=== PATIENT | male | born 1955 | race Caucasian/White ===

== ENCOUNTER 2020-11-01 18:24 | Inpatient (IN) | payer OTHER ==
[~2020-11-01] VITALS: Ht 182.9 cm; Wt 82.9 kg
[2020-11-01] MEDS ORDERED: AZITHROMYCIN 500MG/ 250ML 250 ML IV ONE (18:45)
[2020-11-01] MEDS ORDERED: ASCORBIC ACID 500 MG TAB PO ONE (18:45)
[2020-11-01] MEDS ORDERED: ZINC SULFATE 220mg CAP or TAB PO ONE (18:45)
[2020-11-01] MEDS ORDERED: methylPREDNISolone SOD SUCC 125 MG/2 ML VL IV ONE (18:45)
[2020-11-01] MEDS ORDERED: CHOLECALCIFEROL (VITD3) 2,000 UNIT CAP/TAB PO ONE (18:45)
[2020-11-01 19:46] LABS: Albumin 3.1 g/dL (3.4-5.0); Calcium 9.4 mg/dL (8.5-10.1); Potassium 3.9 mmol/L (3.5-5.1)
[2020-11-01 19:55] LABS: BUN/Creatinine Ratio 39.6; Bilirubin, Total 1.4 mg/dL (0.2-1.0); CRP High Sensitivity 10.9 mg/dL (< 0.3); Total Protein 7.1 g/dL (6.4-8.2)
[2020-11-01] MEDS ORDERED: ACETAMINOPHEN 500 MG TAB PO ONE (20:00)
[2020-11-01] MEDS ORDERED: cefTRIAXone 1GM/50ML D5W 50 ML IV ONE (21:00)
[2020-11-01] MEDS ORDERED: ONDANSETRON HCL 4 MG/2 ML VIAL IV PRN (21:00)
[2020-11-01] MEDS ORDERED: MORPHINE SULFATE INJECTION 2 MG/ML SYRG IV PRN (21:00)
[2020-11-01] MEDS ORDERED: NITROGLYCERIN 0.4 MG SL TAB SL PRN (21:00)
[2020-11-01] MEDS ORDERED: TEMAZEPAM 15 MG CAP PO PRN (21:00)
[2020-11-01] MEDS ORDERED: LORazepam 2MG/ML-1ML VIAL IV PRN (21:00)
[2020-11-01] MEDS ORDERED: DEXTROSE (50%) 50ML SYRG IV PRN (21:00)
[2020-11-01 21:50] VITALS: BP 120/73
[2020-11-01] MEDS: ATORVASTATIN 20 MG TAB PO SCH (22:00)
[2020-11-01] MEDS ORDERED: ATORVASTATIN 20 MG TAB PO SCH (22:00)
[2020-11-01 22:18] LABS: Basophils # (auto) 0 10 ^3/uL (0-0.2); Basophils % (auto) 0.1 % (0.0-2.0); Eosinophils # (auto) 0 10 ^3/uL (0-0.8); Hematocrit 38.1 % (41.0-53.0); Hemoglobin 12.3 g/dL (13.5-17.5); Lymphocytes # (auto) 0.5 10 ^3/uL (0.4-5.4); Lymphocytes % (auto) 7.1 % (10.0-50.0); Mean Corpuscular Hemoglobin 20.4 pg (28.0-32.0); Mean Corpuscular Hgb Conc. 32.3 g/dL (32.0-36.0); Monocytes # (auto) 0.3 10 ^3/uL (0-1.3); Neutrophils % (auto) 87.8 % (37.0-80.0); Nucleated Red Blood Cells % 0.1 %; Red Blood Cells 6.04 10^6/uL (4.5-5.90); Red Cell Distribution Width 15.5 % (11.8-14.3); White Blood Cell 6.8 10^3/uL (4.4-10.8)
[2020-11-01] MEDS: levETIRAcetam 500 MG TAB PO SCH (22:33)
[2020-11-01] MEDS: InsuLIN REG 1unit/0.01ml Soln (100units/ml) SC SCH (22:34)
[2020-11-01] MEDS: ACCU-CHEK COMFORT CURVE STRIP VI SCH (22:35)
[2020-11-01] MEDS: ENOXAPARIN SOD 40 MG/0.4 ML SYRINGE SC SCH (22:36)
[2020-11-02 05:54] LABS: Basophils # (auto) 0 10 ^3/uL (0-0.2); Basophils % (auto) 0.2 % (0.0-2.0); Eosinophils # (auto) 0 10 ^3/uL (0-0.8); Hematocrit 36.1 % (41.0-53.0); Lymphocytes # (auto) 0.5 10 ^3/uL (0.4-5.4); Monocytes # (auto) 0.2 10 ^3/uL (0-1.3)
[2020-11-02 05:58] LABS: Hemoglobin 12.1 g/dL (13.5-17.5); Lymphocytes % (auto) 9.8 % (10.0-50.0); Mean Corpuscular Hemoglobin 21.9 pg (28.0-32.0); Mean Corpuscular Hgb Conc. 33.5 g/dL (32.0-36.0); Mean Corpuscular Volume 65.5 fL (80.0-100.0); Neutrophils # (auto) 4.7 10 ^3/uL (1.6-8.6); Nucleated Red Blood Cells % 0.1 %; Red Blood Cells 5.52 10^6/uL (4.5-5.90); Red Cell Distribution Width 15.4 % (11.8-14.3); White Blood Cell 5.4 10^3/uL (4.4-10.8)
[2020-11-02 06:20] LABS: Potassium 4.1 mmol/L (3.5-5.1)
[2020-11-02 06:30] LABS: Albumin 2.8 g/dL (3.4-5.0); BUN/Creatinine Ratio 48.2; Bilirubin, Total 1.4 mg/dL (0.2-1.0); Calcium 9.2 mg/dL (8.5-10.1); Total Protein 6.9 g/dL (6.4-8.2)
[2020-11-02] MEDS: InsuLIN REG 1unit/0.01ml Soln (100units/ml) SC SCH ×4 (06:45→21:36)
[2020-11-02] MEDS: ACCU-CHEK COMFORT CURVE STRIP VI SCH ×4 (07:16→21:34)
[2020-11-02] MEDS: LISINOPRIL 5 MG TAB PO SCH (10:00)
[2020-11-02] MEDS: DexAMETHasone SOD PHOS 10MG/1ML VIAL INJ IV SCH (10:05)
[2020-11-02] MEDS: cefTRIAXone 1GM/50ML D5W 50 ML IV SCH (10:05)
[2020-11-02] MEDS: levETIRAcetam 500 MG TAB PO SCH ×2 (10:05→21:34)
[2020-11-02] MEDS: ZINC SULFATE 220mg CAP or TAB PO SCH (10:05)
[2020-11-02] MEDS: ASCORBIC ACID 1,000 MG TAB PO SCH (10:06)
[2020-11-02] MEDS: CHOLECALCIFEROL (VITD3) 2,000 UNIT CAP/TAB PO SCH (10:06)
[2020-11-02] MEDS: PANTOPRAZOLE 40 MG TAB PO SCH (10:06)
[2020-11-02] MEDS: ENOXAPARIN SOD 40 MG/0.4 ML SYRINGE SC SCH ×2 (10:07→21:34)
[2020-11-02] MEDS: AZITHROMYCIN 500MG/ 250ML 250 ML IV SCH (11:18)
[2020-11-02] MEDS ORDERED: REMDESIVIR PER PHARMACY 0 ML IV SCH (13:00)
[2020-11-02] MEDS ORDERED: REMDESIVIR 200 MG in NS 210ml LOADING DOSE ADULT IV ONE (14:00)
[2020-11-02] MEDS ORDERED: IOHEXOL 350 MG/ML 100ML IJ ONE (15:46)
[2020-11-02] MEDS: TAMSULOSIN HYDROCHLORIDE 0.4 MG CAP PO SCH (17:42)
[2020-11-02] MEDS: ATORVASTATIN 20 MG TAB PO SCH (21:34)
[2020-11-02 22:32] VITALS: BP 112/73
[2020-11-03 06:10] LABS: Albumin 2.6 g/dL (3.4-5.0); Calcium 9.4 mg/dL (8.5-10.1); Potassium 4.2 mmol/L (3.5-5.1)
[2020-11-03 06:15] LABS: BUN/Creatinine Ratio 43.9; Bilirubin, Total 0.8 mg/dL (0.2-1.0); Total Protein 6.7 g/dL (6.4-8.2)
[2020-11-03] MEDS: ACCU-CHEK COMFORT CURVE STRIP VI SCH ×4 (06:15→21:30)
[2020-11-03] MEDS: InsuLIN REG 1unit/0.01ml Soln (100units/ml) SC SCH ×4 (06:21→21:44)
[2020-11-03 06:26] VITALS: BP 118/74
[2020-11-03] MEDS ORDERED: IOHEXOL 350 MG/ML 100ML IJ ONE (07:44)
[2020-11-03] MEDS: cefTRIAXone 1GM/50ML D5W 50 ML IV SCH (08:52)
[2020-11-03 09:00] VITALS: BP 124/75
[2020-11-03] MEDS: CHOLECALCIFEROL (VITD3) 2,000 UNIT CAP/TAB PO SCH (09:48)
[2020-11-03] MEDS: ZINC SULFATE 220mg CAP or TAB PO SCH (09:48)
[2020-11-03] MEDS: DexAMETHasone SOD PHOS 10MG/1ML VIAL INJ IV SCH (09:48)
[2020-11-03] MEDS: PANTOPRAZOLE 40 MG TAB PO SCH (09:48)
[2020-11-03] MEDS: AZITHROMYCIN 500MG/ 250ML 250 ML IV SCH (09:48)
[2020-11-03] MEDS: ASCORBIC ACID 1,000 MG TAB PO SCH (09:48)
[2020-11-03] MEDS: levETIRAcetam 500 MG TAB PO SCH ×2 (09:48→21:29)
[2020-11-03] MEDS: ENOXAPARIN SOD 40 MG/0.4 ML SYRINGE SC SCH ×2 (09:49→21:30)
[2020-11-03] MEDS: LISINOPRIL 5 MG TAB PO SCH (09:49)
[2020-11-03 13:00] VITALS: BP 118/73
[2020-11-03] MEDS: INSULIN LANTUS (GLARGINE) 1 /0.01ml (100units/ml) SC SCH (14:45)
[2020-11-03] MEDS: REMDESIVIR 100mg 100 MG in SODIUM CHL 0.9% 230 ML IV SCH (16:02)
[2020-11-03 17:00] VITALS: BP 122/78
[2020-11-03] MEDS: TAMSULOSIN HYDROCHLORIDE 0.4 MG CAP PO SCH (18:06)
[2020-11-03] MEDS: ATORVASTATIN 20 MG TAB PO SCH (21:29)
[2020-11-03 22:00] VITALS: BP 110/69
[2020-11-04 05:30] VITALS: BP 116/69
[2020-11-04 06:19] LABS: Albumin 2.6 g/dL (3.4-5.0); Calcium 9.3 mg/dL (8.5-10.1); Potassium 3.9 mmol/L (3.5-5.1)
[2020-11-04 06:22] LABS: BUN/Creatinine Ratio 36.5; Bilirubin, Total 0.8 mg/dL (0.2-1.0); Total Protein 6.3 g/dL (6.4-8.2)
[2020-11-04] MEDS: ACCU-CHEK COMFORT CURVE STRIP VI SCH ×4 (06:26→21:55)
[2020-11-04] MEDS: InsuLIN REG 1unit/0.01ml Soln (100units/ml) SC SCH ×4 (06:26→21:46)
[2020-11-04] MEDS: INSULIN LANTUS (GLARGINE) 1 /0.01ml (100units/ml) SC SCH (06:29)
[2020-11-04] MEDS: ALBUTEROL SULF HFA 90MCG INH 200DOSE IN PRN ×2 (06:50→18:39)
[2020-11-04 09:00] VITALS: BP 134/86
[2020-11-04] MEDS: DexAMETHasone SOD PHOS 10MG/1ML VIAL INJ IV SCH (09:20)
[2020-11-04] MEDS: cefTRIAXone 1GM/50ML D5W 50 ML IV SCH ×2 (09:20→11:02)
[2020-11-04] MEDS: PANTOPRAZOLE 40 MG TAB PO SCH (09:21)
[2020-11-04] MEDS: ZINC SULFATE 220mg CAP or TAB PO SCH (09:21)
[2020-11-04] MEDS: levETIRAcetam 500 MG TAB PO SCH ×2 (09:21→21:54)
[2020-11-04] MEDS: ASCORBIC ACID 1,000 MG TAB PO SCH (09:21)
[2020-11-04] MEDS: CHOLECALCIFEROL (VITD3) 2,000 UNIT CAP/TAB PO SCH (09:21)
[2020-11-04] MEDS: ENOXAPARIN SOD 40 MG/0.4 ML SYRINGE SC SCH ×2 (09:22→21:55)
[2020-11-04] MEDS: LISINOPRIL 5 MG TAB PO SCH (09:22)
[2020-11-04] MEDS: AZITHROMYCIN 500MG/ 250ML 250 ML IV SCH (10:26)
[2020-11-04 13:00] VITALS: BP 113/72
[2020-11-04] MEDS: REMDESIVIR 100mg 100 MG in SODIUM CHL 0.9% 230 ML IV SCH (15:14)
[2020-11-04 17:00] VITALS: BP 128/73
[2020-11-04 17:14] VITALS: BP 113/72
[2020-11-04] MEDS: TAMSULOSIN HYDROCHLORIDE 0.4 MG CAP PO SCH (17:19)
[2020-11-04] MEDS: ATORVASTATIN 20 MG TAB PO SCH (21:54)
[2020-11-04 22:00] VITALS: BP 119/75
[2020-11-05 05:00] VITALS: BP 139/84
[2020-11-05] MEDS: INSULIN LANTUS (GLARGINE) 1 /0.01ml (100units/ml) SC SCH (06:10)
[2020-11-05] MEDS: InsuLIN REG 1unit/0.01ml Soln (100units/ml) SC SCH ×4 (06:14→21:18)
[2020-11-05] MEDS: ACCU-CHEK COMFORT CURVE STRIP VI SCH ×4 (06:14→21:18)
[2020-11-05 06:53] LABS: Basophils # (auto) 0 10 ^3/uL (0-0.2); Eosinophils # (auto) 0 10 ^3/uL (0-0.8); Monocytes # (auto) 0.7 10 ^3/uL (0-1.3); Monocytes % (auto) 8.2 % (0.0-12.0)
[2020-11-05 06:56] LABS: Basophils % (auto) 0.1 % (0.0-2.0); Eosinophils % (auto) 0.4 % (0.0-7.0); Hematocrit 37.8 % (41.0-53.0); Hemoglobin 12.8 g/dL (13.5-17.5); Lymphocytes % (auto) 11.5 % (10.0-50.0); Mean Corpuscular Hemoglobin 21.6 pg (28.0-32.0); Mean Corpuscular Hgb Conc. 33.8 g/dL (32.0-36.0); Mean Corpuscular Volume 63.9 fL (80.0-100.0); Neutrophils # (auto) 7.1 10 ^3/uL (1.6-8.6); Neutrophils % (auto) 79.8 % (37.0-80.0); Nucleated Red Blood Cells % 0.1 %; Red Blood Cells 5.91 10^6/uL (4.5-5.90); Red Cell Distribution Width 15.7 % (11.8-14.3); White Blood Cell 8.9 10^3/uL (4.4-10.8)
[2020-11-05] MEDS: ALBUTEROL SULF HFA 90MCG INH 200DOSE IN PRN ×3 (07:15→20:15)
[2020-11-05 07:26] LABS: Potassium 3.6 mmol/L (3.5-5.1)
[2020-11-05 07:28] LABS: Albumin 2.5 g/dL (3.4-5.0); Calcium 9.4 mg/dL (8.5-10.1)
[2020-11-05 08:15] LABS: BUN/Creatinine Ratio 29.6; Bilirubin, Total 0.9 mg/dL (0.2-1.0); Total Protein 6.4 g/dL (6.4-8.2)
[2020-11-05 09:39] VITALS: BP 136/73
[2020-11-05] MEDS: cefTRIAXone 1GM/50ML D5W 50 ML IV SCH (09:40)
[2020-11-05] MEDS: DexAMETHasone SOD PHOS 10MG/1ML VIAL INJ IV SCH (09:40)
[2020-11-05] MEDS: ENOXAPARIN SOD 40 MG/0.4 ML SYRINGE SC SCH ×2 (09:40→21:18)
[2020-11-05] MEDS: ZINC SULFATE 220mg CAP or TAB PO SCH (09:40)
[2020-11-05] MEDS: LISINOPRIL 5 MG TAB PO SCH (09:41)
[2020-11-05] MEDS: CHOLECALCIFEROL (VITD3) 2,000 UNIT CAP/TAB PO SCH (09:41)
[2020-11-05] MEDS: PANTOPRAZOLE 40 MG TAB PO SCH (09:42)
[2020-11-05] MEDS: levETIRAcetam 500 MG TAB PO SCH ×2 (09:42→21:20)
[2020-11-05] MEDS: ASCORBIC ACID 1,000 MG TAB PO SCH (09:43)
[2020-11-05] MEDS: AZITHROMYCIN 500MG/ 250ML 250 ML IV SCH (10:50)
[2020-11-05 13:15] VITALS: BP 124/73
[2020-11-05] MEDS ORDERED: NITR100C6 PO (13:58)
[2020-11-05] MEDS ORDERED: METF-370 PO (13:58)
[2020-11-05] MEDS ORDERED: LORA0.5T20 PO (13:58)
[2020-11-05] MEDS ORDERED: ATOR10TA52 PO (13:58)
[2020-11-05] MEDS ORDERED: LISI-275 PO (13:58)
[2020-11-05] MEDS ORDERED: LEVE500T3 PO (13:58)
[2020-11-05] MEDS ORDERED: TAMS0.4C36 PO (13:58)
[2020-11-05] MEDS: REMDESIVIR 100mg 100 MG in SODIUM CHL 0.9% 230 ML IV SCH (15:13)
[2020-11-05 17:00] VITALS: BP 139/86
[2020-11-05] MEDS: TAMSULOSIN HYDROCHLORIDE 0.4 MG CAP PO SCH (18:00)
[2020-11-05] MEDS: ATORVASTATIN 20 MG TAB PO SCH (21:18)
[2020-11-05 22:00] VITALS: BP 134/86
[2020-11-06 05:00] VITALS: BP 124/91
[2020-11-06] MEDS: InsuLIN REG 1unit/0.01ml Soln (100units/ml) SC SCH ×4 (06:12→22:06)
[2020-11-06] MEDS: INSULIN LANTUS (GLARGINE) 1 /0.01ml (100units/ml) SC SCH (06:12)
[2020-11-06] MEDS: ACCU-CHEK COMFORT CURVE STRIP VI SCH ×4 (06:20→21:58)
[2020-11-06 06:30] LABS: Basophils # (auto) 0 10 ^3/uL (0-0.2); Basophils % (auto) 0.1 % (0.0-2.0); Eosinophils # (auto) 0 10 ^3/uL (0-0.8); Lymphocytes # (auto) 0.9 10 ^3/uL (0.4-5.4); Nucleated Red Blood Cells % 0.1 %
[2020-11-06 06:34] LABS: Eosinophils % (auto) 0.3 % (0.0-7.0); Hematocrit 40.6 % (41.0-53.0); Hemoglobin 13.2 g/dL (13.5-17.5); Mean Corpuscular Hemoglobin 20.5 pg (28.0-32.0); Mean Corpuscular Hgb Conc. 32.4 g/dL (32.0-36.0); Mean Corpuscular Volume 63.2 fL (80.0-100.0); Monocytes % (auto) 9.2 % (0.0-12.0); Neutrophils # (auto) 9.1 10 ^3/uL (1.6-8.6); Neutrophils % (auto) 82.4 % (37.0-80.0); Red Blood Cells 6.41 10^6/uL (4.5-5.90); Red Cell Distribution Width 15.6 % (11.8-14.3); White Blood Cell 11.1 10^3/uL (4.4-10.8)
[2020-11-06 06:53] LABS: Albumin 2.6 g/dL (3.4-5.0); BUN/Creatinine Ratio 28.8; Calcium 9.6 mg/dL (8.5-10.1); Potassium 3.7 mmol/L (3.5-5.1)
[2020-11-06 06:56] LABS: Bilirubin, Total 1.1 mg/dL (0.2-1.0); Total Protein 6.8 g/dL (6.4-8.2)
[2020-11-06 08:00] VITALS: BP 131/84
[2020-11-06] MEDS: AZITHROMYCIN 500MG/ 250ML 250 ML IV SCH (09:13)
[2020-11-06] MEDS: DexAMETHasone SOD PHOS 10MG/1ML VIAL INJ IV SCH (09:14)
[2020-11-06] MEDS: ZINC SULFATE 220mg CAP or TAB PO SCH (09:15)
[2020-11-06] MEDS: PANTOPRAZOLE 40 MG TAB PO SCH (09:15)
[2020-11-06] MEDS: CHOLECALCIFEROL (VITD3) 2,000 UNIT CAP/TAB PO SCH (09:15)
[2020-11-06] MEDS: levETIRAcetam 500 MG TAB PO SCH ×2 (09:15→21:58)
[2020-11-06] MEDS: LISINOPRIL 5 MG TAB PO SCH (09:15)
[2020-11-06] MEDS: ASCORBIC ACID 1,000 MG TAB PO SCH (09:20)
[2020-11-06] MEDS: ENOXAPARIN SOD 40 MG/0.4 ML SYRINGE SC SCH ×2 (09:23→21:58)
[2020-11-06] MEDS: ALBUTEROL SULF HFA 90MCG INH 200DOSE IN PRN ×2 (09:39→20:37)
[2020-11-06] MEDS ORDERED: ACETAMINOPHEN 325 MG TAB PO PRN (11:00)
[2020-11-06 12:58] VITALS: BP 134/80
[2020-11-06] MEDS: REMDESIVIR 100mg 100 MG in SODIUM CHL 0.9% 230 ML IV SCH (15:23)
[2020-11-06] MEDS ORDERED: HALOPERIDOL LACTATE 5 MG/ML INJ VIAL IM ONE (16:15)
[2020-11-06] MEDS ORDERED: LORazepam 2MG/ML-1ML VIAL IV ONE (16:15)
[2020-11-06] MEDS ORDERED: HALOPERIDOL LACTATE 5 MG/ML INJ VIAL IM PRN (16:15)
[2020-11-06 17:13] VITALS: BP 135/80
[2020-11-06] MEDS: LORazepam 2MG/ML-1ML VIAL IV PRN (17:16)
[2020-11-06] MEDS: TAMSULOSIN HYDROCHLORIDE 0.4 MG CAP PO SCH (18:03)
[2020-11-06] MEDS: ATORVASTATIN 20 MG TAB PO SCH (21:58)
[2020-11-06 22:00] VITALS: BP 124/88
[2020-11-07 05:09] VITALS: BP 120/89
[2020-11-07 05:33] LABS: Basophils # (auto) 0 10 ^3/uL (0-0.2); Basophils % (auto) 0.1 % (0.0-2.0); Eosinophils # (auto) 0.1 10 ^3/uL (0-0.8); White Blood Cell 10.3 10^3/uL (4.4-10.8)
[2020-11-07 05:36] LABS: Eosinophils % (auto) 1.1 % (0.0-7.0); Hematocrit 36.2 % (41.0-53.0); Hemoglobin 12.4 g/dL (13.5-17.5); Lymphocytes # (auto) 1.2 10 ^3/uL (0.4-5.4); Lymphocytes % (auto) 11.5 % (10.0-50.0); Mean Corpuscular Hgb Conc. 34.2 g/dL (32.0-36.0); Mean Corpuscular Volume 61.5 fL (80.0-100.0); Monocytes % (auto) 9.8 % (0.0-12.0); Neutrophils % (auto) 77.5 % (37.0-80.0); Nucleated Red Blood Cells % 0.1 %; Red Blood Cells 5.89 10^6/uL (4.5-5.90); Red Cell Distribution Width 15.6 % (11.8-14.3)
[2020-11-07 05:58] LABS: INR 1.1 (0.9-1.15); Partial Thromboplastin Time 26.5 sec (23.6-33.0)
[2020-11-07 06:01] LABS: Alanine Aminotransferase 146 U/L (16-61); Albumin 2.4 g/dL (3.4-5.0); Anion Gap 6 (5-15); Aspartate Aminotransferase 49 U/L (15-37); Blood Urea Nitrogen 17 mg/dL (7-18); Calcium 9.4 mg/dL (8.5-10.1); Carbon Dioxide 24 mmol/L (21-32); Chloride 109 mmol/L (98-107); GFR African American 136 mL/min; GFR Non-African American 112 mL/min; Glucose 108 mg/dL (74-106); Magnesium 2.3 mg/dL (1.6-2.6); Potassium 3.9 mmol/L (3.5-5.1); Sodium 139 mmol/L (136-145)
[2020-11-07 06:06] LABS: Alkaline Phosphatase 53 U/L (45-117); Phosphorus 2.6 mg/dL (2.5-4.90); Total Protein 6.3 g/dL (6.4-8.2)
[2020-11-07] MEDS: INSULIN LANTUS (GLARGINE) 1 /0.01ml (100units/ml) SC SCH (06:29)
[2020-11-07] MEDS: ACCU-CHEK COMFORT CURVE STRIP VI SCH ×4 (06:29→22:22)
[2020-11-07] MEDS: InsuLIN REG 1unit/0.01ml Soln (100units/ml) SC SCH ×4 (06:29→22:39)
[2020-11-07] MEDS: ALBUTEROL SULF HFA 90MCG INH 200DOSE IN PRN ×2 (07:45→21:35)
[2020-11-07 08:41] VITALS: BP 129/81
[2020-11-07] MEDS: DexAMETHasone SOD PHOS 10MG/1ML VIAL INJ IV SCH (09:01)
[2020-11-07] MEDS: cefTRIAXone 1GM/50ML D5W 50 ML IV SCH (09:01)
[2020-11-07] MEDS: ENOXAPARIN SOD 40 MG/0.4 ML SYRINGE SC SCH ×2 (09:01→22:22)
[2020-11-07] MEDS: ASCORBIC ACID 1,000 MG TAB PO SCH (09:02)
[2020-11-07] MEDS: CHOLECALCIFEROL (VITD3) 2,000 UNIT CAP/TAB PO SCH (09:02)
[2020-11-07] MEDS: PANTOPRAZOLE 40 MG TAB PO SCH (09:02)
[2020-11-07] MEDS: ZINC SULFATE 220mg CAP or TAB PO SCH (09:02)
[2020-11-07] MEDS: levETIRAcetam 500 MG TAB PO SCH ×2 (09:02→22:21)
[2020-11-07] MEDS: LISINOPRIL 5 MG TAB PO SCH (09:12)
[2020-11-07 13:00] VITALS: BP 143/81
[2020-11-07] MEDS: LORazepam 2MG/ML-1ML VIAL IV PRN (15:01)
[2020-11-07 16:58] LABS: Alcohol, Urine < 3.0 mg/dL (0-10); Amphetamine Screen, Urine NEGATIVE (NEGATIVE); Barbiturate Scree,Urine NEGATIVE (NEGATIVE); Benzodiazephine Screen, Urine NEGATIVE (NEGATIVE); Cannabinoid Screen, Urine NEGATIVE (NEGATIVE); Cocaine Screen, Urine NEGATIVE (NEGATIVE); Opiate Scree,Urine NEGATIVE (NEGATIVE); Phencyclidine Screen, Urine NEGATIVE (NEGATIVE)
[2020-11-07 17:00] VITALS: BP 139/78
[2020-11-07] MEDS: TAMSULOSIN HYDROCHLORIDE 0.4 MG CAP PO SCH (17:37)
[2020-11-07 22:00] VITALS: BP 129/83
[2020-11-07] MEDS: ATORVASTATIN 20 MG TAB PO SCH (22:21)
[2020-11-08 05:00] VITALS: BP 114/71
[2020-11-08 06:30] LABS: Basophils # (auto) 0 10 ^3/uL (0-0.2); Basophils % (auto) 0.1 % (0.0-2.0); Eosinophils # (auto) 0.1 10 ^3/uL (0-0.8); Hemoglobin 12.2 g/dL (13.5-17.5); Lymphocytes # (auto) 1.3 10 ^3/uL (0.4-5.4); Mean Corpuscular Hgb Conc. 32.9 g/dL (32.0-36.0)
[2020-11-08 06:32] LABS: Eosinophils % (auto) 0.6 % (0.0-7.0); Hematocrit 37.1 % (41.0-53.0); Mean Corpuscular Hemoglobin 20.7 pg (28.0-32.0); Monocytes % (auto) 10.3 % (0.0-12.0); Neutrophils # (auto) 7.6 10 ^3/uL (1.6-8.6); Nucleated Red Blood Cells % 0.1 %; Red Blood Cells 5.89 10^6/uL (4.5-5.90); Red Cell Distribution Width 15.8 % (11.8-14.3)
[2020-11-08] MEDS: ALBUTEROL SULF HFA 90MCG INH 200DOSE IN PRN (06:34)
[2020-11-08 06:35] LABS: Potassium 3.8 mmol/L (3.5-5.1)
[2020-11-08] MEDS: ACCU-CHEK COMFORT CURVE STRIP VI SCH ×4 (06:47→21:28)
[2020-11-08] MEDS: INSULIN LANTUS (GLARGINE) 1 /0.01ml (100units/ml) SC SCH (06:47)
[2020-11-08] MEDS: InsuLIN REG 1unit/0.01ml Soln (100units/ml) SC SCH ×4 (06:47→21:30)
[2020-11-08 06:50] LABS: Albumin 2.5 g/dL (3.4-5.0); BUN/Creatinine Ratio 29.7; Bilirubin, Total 0.9 mg/dL (0.2-1.0); Calcium 9.3 mg/dL (8.5-10.1); Magnesium 2.5 mg/dL (1.6-2.6); Phosphorus 2.7 mg/dL (2.5-4.90); Total Protein 6.1 g/dL (6.4-8.2)
[2020-11-08 08:49] VITALS: BP 143/81
[2020-11-08 10:00] VITALS: BP 122/75
[2020-11-08] MEDS: cefTRIAXone 1GM/50ML D5W 50 ML IV SCH (10:15)
[2020-11-08] MEDS: DexAMETHasone SOD PHOS 10MG/1ML VIAL INJ IV SCH (10:15)
[2020-11-08] MEDS: LISINOPRIL 5 MG TAB PO SCH (10:16)
[2020-11-08] MEDS: levETIRAcetam 500 MG TAB PO SCH ×2 (10:16→21:27)
[2020-11-08] MEDS: CHOLECALCIFEROL (VITD3) 2,000 UNIT CAP/TAB PO SCH (10:16)
[2020-11-08] MEDS: PANTOPRAZOLE 40 MG TAB PO SCH (10:16)
[2020-11-08] MEDS: ASCORBIC ACID 1,000 MG TAB PO SCH (10:16)
[2020-11-08] MEDS: ZINC SULFATE 220mg CAP or TAB PO SCH (10:16)
[2020-11-08] MEDS: ENOXAPARIN SOD 40 MG/0.4 ML SYRINGE SC SCH ×2 (10:17→21:28)
[2020-11-08] MEDS ORDERED: CHOL1CAP47 PO (11:56)
[2020-11-08] MEDS ORDERED: ASCO10003 PO (11:56)
[2020-11-08] MEDS ORDERED: ALBUAER3 IN (11:56)
[2020-11-08 12:00] VITALS: BP 123/89
[2020-11-08] MEDS: LORazepam 2MG/ML-1ML VIAL IV PRN (13:38)
[2020-11-08 16:00] VITALS: BP 132/89
[2020-11-08] MEDS: TAMSULOSIN HYDROCHLORIDE 0.4 MG CAP PO SCH (17:52)
[2020-11-08] MEDS: ATORVASTATIN 20 MG TAB PO SCH (21:27)
[2020-11-08 22:00] VITALS: BP 125/93
[2020-11-09 05:00] VITALS: BP 112/73
[2020-11-09] MEDS: InsuLIN REG 1unit/0.01ml Soln (100units/ml) SC SCH ×4 (06:17→22:09)
[2020-11-09] MEDS: ACCU-CHEK COMFORT CURVE STRIP VI SCH ×4 (06:18→21:52)
[2020-11-09] MEDS: INSULIN LANTUS (GLARGINE) 1 /0.01ml (100units/ml) SC SCH (06:18)
[2020-11-09 09:00] VITALS: BP 125/85
[2020-11-09] MEDS: cefTRIAXone 1GM/50ML D5W 50 ML IV SCH (09:54)
[2020-11-09] MEDS: CHOLECALCIFEROL (VITD3) 2,000 UNIT CAP/TAB PO SCH (09:55)
[2020-11-09] MEDS: ASCORBIC ACID 1,000 MG TAB PO SCH (09:55)
[2020-11-09] MEDS: levETIRAcetam 500 MG TAB PO SCH ×2 (09:55→21:51)
[2020-11-09] MEDS: ZINC SULFATE 220mg CAP or TAB PO SCH (09:55)
[2020-11-09] MEDS: DexAMETHasone SOD PHOS 10MG/1ML VIAL INJ IV SCH (09:55)
[2020-11-09] MEDS: LISINOPRIL 5 MG TAB PO SCH (09:56)
[2020-11-09] MEDS: ENOXAPARIN SOD 40 MG/0.4 ML SYRINGE SC SCH ×2 (09:56→21:52)
[2020-11-09] MEDS: LORazepam 2MG/ML-1ML VIAL IV PRN (11:21)
[2020-11-09 17:00] VITALS: BP 111/78
[2020-11-09] MEDS: TAMSULOSIN HYDROCHLORIDE 0.4 MG CAP PO SCH (18:10)
[2020-11-09] MEDS: ATORVASTATIN 20 MG TAB PO SCH (21:52)
[2020-11-09 22:00] VITALS: BP 98/62
[2020-11-09] MEDS: ALBUTEROL SULF HFA 90MCG INH 200DOSE IN PRN (22:00)
[2020-11-10 05:00] VITALS: BP 111/70
[2020-11-10] MEDS: InsuLIN REG 1unit/0.01ml Soln (100units/ml) SC SCH ×4 (05:26→22:48)
[2020-11-10] MEDS: ACCU-CHEK COMFORT CURVE STRIP VI SCH ×4 (05:26→21:20)
[2020-11-10] MEDS: INSULIN LANTUS (GLARGINE) 1 /0.01ml (100units/ml) SC SCH (05:40)
[2020-11-10 09:00] VITALS: BP 119/67
[2020-11-10] MEDS: levETIRAcetam 500 MG TAB PO SCH ×2 (11:30→21:19)
[2020-11-10] MEDS: DexAMETHasone SOD PHOS 10MG/1ML VIAL INJ IV SCH (11:30)
[2020-11-10] MEDS: cefTRIAXone 1GM/50ML D5W 50 ML IV SCH (11:30)
[2020-11-10] MEDS: ASCORBIC ACID 1,000 MG TAB PO SCH (11:30)
[2020-11-10] MEDS: ENOXAPARIN SOD 40 MG/0.4 ML SYRINGE SC SCH ×2 (11:30→21:20)
[2020-11-10] MEDS: LISINOPRIL 5 MG TAB PO SCH (11:31)
[2020-11-10] MEDS: ZINC SULFATE 220mg CAP or TAB PO SCH (11:32)
[2020-11-10] MEDS: CHOLECALCIFEROL (VITD3) 2,000 UNIT CAP/TAB PO SCH (11:32)
[2020-11-10 13:00] VITALS: BP 102/70
[2020-11-10] MEDS ORDERED: DOCUSATE SOD 100 MG CAP PO ONE (13:45)
[2020-11-10 17:00] VITALS: BP 105/70
[2020-11-10] MEDS: TAMSULOSIN HYDROCHLORIDE 0.4 MG CAP PO SCH (17:58)
[2020-11-10] MEDS: ATORVASTATIN 20 MG TAB PO SCH (21:19)
[2020-11-10 22:00] VITALS: BP 101/64
[2020-11-11 05:00] VITALS: BP 120/70
[2020-11-11] MEDS: ACCU-CHEK COMFORT CURVE STRIP VI SCH ×4 (06:14→22:35)
[2020-11-11] MEDS: InsuLIN REG 1unit/0.01ml Soln (100units/ml) SC SCH ×4 (06:14→22:37)
[2020-11-11] MEDS: INSULIN LANTUS (GLARGINE) 1 /0.01ml (100units/ml) SC SCH (06:18)
[2020-11-11] MEDS: ALBUTEROL SULF HFA 90MCG INH 200DOSE IN PRN ×2 (08:01→23:14)
[2020-11-11 09:00] VITALS: BP 120/70
[2020-11-11] MEDS: DexAMETHasone SOD PHOS 10MG/1ML VIAL INJ IV SCH (09:31)
[2020-11-11] MEDS: levETIRAcetam 500 MG TAB PO SCH ×2 (09:32→22:34)
[2020-11-11] MEDS: CHOLECALCIFEROL (VITD3) 2,000 UNIT CAP/TAB PO SCH (09:32)
[2020-11-11] MEDS: LISINOPRIL 5 MG TAB PO SCH (09:32)
[2020-11-11] MEDS: ASCORBIC ACID 1,000 MG TAB PO SCH (09:32)
[2020-11-11] MEDS: ZINC SULFATE 220mg CAP or TAB PO SCH (09:32)
[2020-11-11] MEDS: ENOXAPARIN SOD 40 MG/0.4 ML SYRINGE SC SCH ×2 (09:32→22:35)
[2020-11-11 13:00] VITALS: BP 99/63
[2020-11-11 17:00] VITALS: BP 108/68
[2020-11-11] MEDS: TAMSULOSIN HYDROCHLORIDE 0.4 MG CAP PO SCH (18:04)
[2020-11-11 22:00] VITALS: BP 100/64
[2020-11-11] MEDS: ATORVASTATIN 20 MG TAB PO SCH (22:34)
[2020-11-12 05:03] VITALS: BP 102/70
[2020-11-12] MEDS: InsuLIN REG 1unit/0.01ml Soln (100units/ml) SC SCH ×4 (06:37→21:28)
[2020-11-12] MEDS: ACCU-CHEK COMFORT CURVE STRIP VI SCH ×4 (06:39→21:37)
[2020-11-12] MEDS: INSULIN LANTUS (GLARGINE) 1 /0.01ml (100units/ml) SC SCH (06:42)
[2020-11-12] MEDS: ALBUTEROL SULF HFA 90MCG INH 200DOSE IN PRN (07:18)
[2020-11-12 09:00] VITALS: BP 99/64
[2020-11-12] MEDS: DexAMETHasone SOD PHOS 10MG/1ML VIAL INJ IV SCH (09:22)
[2020-11-12] MEDS: ZINC SULFATE 220mg CAP or TAB PO SCH (09:22)
[2020-11-12] MEDS: levETIRAcetam 500 MG TAB PO SCH ×2 (09:22→21:37)
[2020-11-12] MEDS: CHOLECALCIFEROL (VITD3) 2,000 UNIT CAP/TAB PO SCH (09:23)
[2020-11-12] MEDS: ASCORBIC ACID 1,000 MG TAB PO SCH (09:23)
[2020-11-12] MEDS: ENOXAPARIN SOD 40 MG/0.4 ML SYRINGE SC SCH ×2 (09:24→21:37)
[2020-11-12] MEDS: LISINOPRIL 5 MG TAB PO SCH (09:24)
[2020-11-12 13:00] VITALS: BP 105/70
[2020-11-12 17:00] VITALS: BP 104/69
[2020-11-12] MEDS: TAMSULOSIN HYDROCHLORIDE 0.4 MG CAP PO SCH (17:57)
[2020-11-12] MEDS: ATORVASTATIN 20 MG TAB PO SCH (21:37)
[2020-11-12 22:00] VITALS: BP 94/63
[2020-11-13 04:56] VITALS: BP 100/65
[2020-11-13] MEDS: INSULIN LANTUS (GLARGINE) 1 /0.01ml (100units/ml) SC SCH (06:30)
[2020-11-13] MEDS: ALBUTEROL SULF HFA 90MCG INH 200DOSE IN PRN (06:30)
[2020-11-13] MEDS: InsuLIN REG 1unit/0.01ml Soln (100units/ml) SC SCH ×4 (07:00→21:27)
[2020-11-13] MEDS: ACCU-CHEK COMFORT CURVE STRIP VI SCH ×4 (07:06→21:27)
[2020-11-13 09:00] VITALS: BP 109/58
[2020-11-13] MEDS: levETIRAcetam 500 MG TAB PO SCH ×2 (09:10→21:26)
[2020-11-13] MEDS: ZINC SULFATE 220mg CAP or TAB PO SCH (09:10)
[2020-11-13] MEDS: DexAMETHasone SOD PHOS 10MG/1ML VIAL INJ IV SCH (09:10)
[2020-11-13] MEDS: LISINOPRIL 5 MG TAB PO SCH (09:11)
[2020-11-13] MEDS: CHOLECALCIFEROL (VITD3) 2,000 UNIT CAP/TAB PO SCH (09:11)
[2020-11-13] MEDS: ASCORBIC ACID 1,000 MG TAB PO SCH (09:11)
[2020-11-13] MEDS ORDERED: SENNA 8.6 MG TAB PO ONE (12:00)
[2020-11-13 13:00] VITALS: BP 110/68
[2020-11-13 17:00] VITALS: BP 92/71
[2020-11-13 17:21] VITALS: BP_SYST 109; BP_SYST 129; BP_DIAS 58; BP_DIAS 70
[2020-11-13] MEDS: TAMSULOSIN HYDROCHLORIDE 0.4 MG CAP PO SCH (18:01)
[2020-11-13] MEDS: ATORVASTATIN 20 MG TAB PO SCH (21:27)
[2020-11-13 22:00] VITALS: BP 114/72
[2020-11-13] MEDS ORDERED: SENNA 8.6 MG TAB PO SCH (22:00)
[2020-11-14 05:00] VITALS: BP 108/64
[2020-11-14] MEDS: InsuLIN REG 1unit/0.01ml Soln (100units/ml) SC SCH (06:27)
[2020-11-14] MEDS: ACCU-CHEK COMFORT CURVE STRIP VI SCH (06:27)
[2020-11-14] MEDS: INSULIN LANTUS (GLARGINE) 1 /0.01ml (100units/ml) SC SCH (06:28)
[2020-11-14] MEDS: ALBUTEROL SULF HFA 90MCG INH 200DOSE IN PRN (07:02)
[2020-11-14 09:36] VITALS: BP 129/70
== END 2020-11-14 11:02 | disposition home health service (06) | DRG 177 ==
LOC: ER 18:24 → EDBD 18:24 → TELE 20:55 → TELE-EAST 11-02 15:49
PROVIDERS: ADMIT Nurse Practitioner; ATTEND Internal Medicine Pulmonary Disease
PROC: XW033E5 Introduction of Remdesivir Anti-infective into Peripheral Vein, Percutaneous Approach, New Technology Group 5 (ICD-10-PCS; principal; 2020-11-02)
DX: U07.1 COVID-19 (principal); J12.82 Pneumonia due to coronavirus disease 2019; J96.01 Acute respiratory failure with hypoxia; E11.65 Type 2 diabetes mellitus with hyperglycemia; R74.01 Elevation of levels of liver transaminase levels; I49.5 Sick sinus syndrome; G40.909 Epilepsy, unspecified, not intractable, without status epilepticus; E78.5 Hyperlipidemia, unspecified; I10 Essential (primary) hypertension; Z95.0 Presence of cardiac pacemaker
CPT/HCPCS: 36415; 36600; 70450; 71045; 71275; 80053; 80307; 82140; 82728; 82805; 82962; 83605; 83615; 83735; 83880; 84100; 84443; 84484; 85025; 85379; 85610; 85730; 86141; 87040; 87426; 93005; 94640; 96365; 96366; 96367; 96372; 96375; 97110; 97116; 97530; 99291; G0378; J0696; J1100; J1815